=== PATIENT | female | born 1975 ===

== ENCOUNTER 2025-02-26 12:26 | Outpatient (CLI) | payer BC, SELFPAY ==
--- NOTE | 2025-02-26 11:45 | DI.RAD_ITS ---
Exam(s) XR HIP RT COMPLETE AP PELVIS EXAM: XR HIP RT COMPLETE AP PELVIS CLINICAL HISTORY: Right groin pain, rt hip pain, M25.551. TECHNIQUE: 2D digital imaging was performed. Three views. COMPARISON: No exams were available for comparison FINDINGS: BONES: No acute fracture is present. No bony destructive lesion is seen. Hardware is noted in the l ower lumbar spine. JOINTS: No dislocation present. The hip joint spaces are maintained. Minimal acetabular spurring. S I joints and pubic symphysis are unremarkable. SOFT TISSUE: Ovoid calcification superior to the greater trochanter could indicate calcific tendinosi s. IMPRESSION: Ovoid calcification superior to the greater trochanter could indicate calcific tendinosis. DATA REPOSITORY: RADIATION DOSE DELIVERED:
== END 2025-02-26 12:46 ==
PROVIDERS: PCP Internal Medicine; Visit Provider Preventive Medicine Occupational Medicine
DX: M25.551 Pain in right hip (principal); M75.31 Calcific tendinitis of right shoulder
CPT/HCPCS: 73502

== ENCOUNTER 2025-07-17 09:44 | Outpatient (CLI) | payer OTHER, BC, SELFPAY ==
[2025-07-17 10:03] VITALS: BP 135/92; PULSE 85; RESP 17; TEMP 36.7; O2SAT 99
[2025-07-17 10:22] VITALS: PULSE 88; O2SAT 99
[2025-07-17 10:30] VITALS: PULSE 86; O2SAT 99
[2025-07-17] MEDS: methylPREDNISolone ACETATE 40 MG/ML VIAL IJ (10:53)
[2025-07-17] MEDS: Lidocaine 2% Pres-Free 5 ML VIAL IJ (10:53)
[2025-07-17] MEDS: Nerve Block Tray 1 EACH MC (10:54)
--- NOTE | 2025-07-21 06:41 | PDOC.PAIN ---
Date of service: 07/17/25 Time of Service: 10:30 US Guided Injections Type of Ultrasound Guided Injection: Right Piriformis Injection Pre-Procedural Evaluation Pain to the right buttock radiating to the posterior right thigh and calf Referral Patient has been referred to the [facility] for Right Piriformis Injection for a chief complaint of Pain to the right buttock radiating to the posterior right thigh and calf Pre-Procedural Pain Score Pre-procedural pain score: 5/10 Reason for Exam Pain to the right buttock radiating to the posterior right thigh and calf Patient Interview Patient was interviewed and medical record reviewed: Yes There were no contraindications to performing an US guided procedure. Risks,expected side effects, potential benefits were reviewed. The patient consent form was signed and witnessed. Standard time out procedure was performed. Patient Safety No major skin issues at the injection site Procedure Description Patient was placed in the prone position and the following Pulse Ox applied. Pre-Procedure ultrasound scanning performed using a Linear 9 MHz probe Site Preparation Chloroprep Local Anesthesia Skin and subcutaneous tissues anesthetized with: 2 mL of Lidocaine 2%. A 21 G 3.5 Pajunk ultrasound needle was placed under live US guidance using an in-plane approach to the target area. After visualization of the needle tip at the target area Depo-Medrol 40mg per cc and Lidocaine 2% were used. Total of Injectate/Medication Note: 1 cc of Depomedrol and 3 cc of 2% Lidocaine Negative aspiration for blood. [place] were removed without difficulty. Ultrasound images were captured and stored. Patient Mental Status Patient was alert and awake during procedure Vital Signs Vital signs were stable throughout the procedure and recorded by nursing. Follow Up/Discharge Follow up plans and appointments were discussed with patient. Post procedure instruction was given as documented in nursing documentation. Discharge criteria met and patient discharged from [facility] Management Center: Yes Post Procedure Pain Post Procedure Pain: 0/10 Patient tolerated procedure well Procedure Outcome: Successful Non US Guided Injections Procedure Description Patient was placed in the prone position Post Procedure Pain Post Procedure Pain: 0/10 Coding Conscious Sedation used for procedure: No CPT Codes: TPI Single/Multi 1 or 2 Muscles - 28842 ([id number] ~G) Additional Codes: Visualization of the needle tip - Ultrasound images captured/stored: Yes ([id number]) Date of Service (48597) Date of service: 07/17/25 Diagnoses: Muscle pain
== END 2025-07-17 09:45 | disposition home or self-care (01) ==
PROVIDERS: PCP Internal Medicine; Visit Provider Preventive Medicine Occupational Medicine
DX: M79.651 Pain in right thigh (principal); M79.661 Pain in right lower leg
CPT/HCPCS: 20552; 76942; J1010

== ENCOUNTER 2025-09-11 14:20 | Outpatient (CLI) | payer OTHER, BC, SELFPAY ==
[2025-09-11 14:34] VITALS: BP 132/89; PULSE 68; RESP 20; TEMP 36.8; O2SAT 98
--- NOTE | 2025-09-11 14:48 | PDOC.PAIN_ITS ---
Date of service: 09/11/25 Time of Service: 14:48 US Guided Injections Type of Ultrasound Guided Injection: Left Piriformis muscle Buttock Trigger Point Injection Pre-Procedural Evaluation Pain at the left piriformis muscle Referral Patient has been referred to the [facility] for Left Piriformis muscle Buttock Trigger Point Injection for a chief complaint of Pain at the left piriformis muscle Pre-Procedural Pain Score Pre-procedural pain score: 4/10 Reason for Exam Left buttock pain with radiation down the left leg Patient Interview Patient was interviewed and medical record reviewed: Yes There were no contraindications to performing an US guided procedure. Risks,expected side effects, potential benefits were reviewed. The patient consent form was signed and witnessed. Standard time out procedure was performed. Patient Safety No major skin issue at the injection site Procedure Description No sedation given for procedure Patient was placed in the prone position and the following Pulse Ox applied. Pre-Procedure ultrasound scanning performed using a Linear 9 MHz probe Site Preparation Chloroprep Local Anesthesia Skin and subcutaneous tissues anesthetized with: 2 mL of Lidocaine 2%. A 21 G 3.5 Pajunk ultrasound needle was placed under live US guidance using an in-plane approach to the target area. After visualization of the needle tip at the target area Depo-Medrol 40mg per cc and Lidocaine 2% were used. Total of Injectate/Medication Note: 1 cc Depomedrol and 5 cc of 2% Lidocaine Negative aspiration for blood. [place] were removed without difficulty. Ultrasound images were captured and stored. Patient Mental Status Patient was alert during procedure Vital Signs Vital signs were stable throughout the procedure and recorded by nursing. Follow Up/Discharge Follow up plans and appointments were discussed with patient. Post procedure instruction was given as documented in nursing documentation. Discharge criteria met and patient discharged from Pain Management Center: Yes Post Procedure Pain Post Procedure Pain: 2/10 Patient tolerated procedure well Procedure Outcome: Successful Non US Guided Injections Procedure Description Patient was placed in the prone position Post Procedure Pain Post Procedure Pain: 2/10 Coding Conscious Sedation used for procedure: No CPT Codes: TPI Single/Multi 1 or 2 Muscles - 59988 ([id number] ~G) Additional Codes: Date of Service (42124) Visualization of the needle tip - Ultrasound images captured/stored: Yes ([id number]) Diagnoses: Piriformis syndrome - left and muscle pain
[2025-09-11 14:49] VITALS: PULSE 87; O2SAT 100
[2025-09-11 14:50] VITALS: PULSE 84; O2SAT 99
[2025-09-11 15:00] VITALS: PULSE 80; O2SAT 100
[2025-09-11] MEDS: methylPREDNISolone ACETATE 40 MG/ML VIAL IJ (15:12)
[2025-09-11] MEDS: Lidocaine 2% Pres-Free 5 ML VIAL IJ (15:12)
[2025-09-11] MEDS: Nerve Block Tray 1 EACH MC (15:12)
== END 2025-09-11 14:21 | disposition home or self-care (01) ==
LOC: PC 14:20
PROVIDERS: PCP Internal Medicine; Visit Provider Preventive Medicine Occupational Medicine
DX: M79.652 Pain in left thigh (principal)
CPT/HCPCS: 20552; 76942; J1010